=== PATIENT | male | born 1945 | race Caucasian/White ===

== ENCOUNTER 2019-04-13 09:37 | Outpatient (CLI) | payer MEDICARE, BC ==
--- NOTE | 2019-04-13 12:47 | MRI ---
MRI OF THE RIGHT ANKLE: DATE: 04/13/2019. PROVIDED CLINICAL HISTORY: Right heal palpable abnormality. FINDINGS: Evaluation for soft tissue mass is limited I the absence of IV contrast material. The anterior extensor, medial flexor, perineal, and Achilles tendons demonstrate an intact MR appeara nce. There is noncircumscribed fluid signal intensity seen within Kager fat. The medial and lateral ankle ligaments appear intact. There is greater than physiologic retrocalcane al bursal fluid. There is enlargement and signal heterogeneity involving the medial cortical plantar aponeurosis near its calcaneal attachment with associated signal alteration within the subcortical bone. Prominence of the vasculature involving the lateral branch of the plantar nerve. No evidence for den ervation change involving the regional musculature. The tarsal sinus appears normal. There is prese rvation of the normal fat signal intensity within the tarsal sinus. The tarsal tunnel appears normal . There is a circumscribed area of signal alteration within the subcutaneous adipose layer plantar to t he medial cord of the plantar aponeurosis/plantar calcaneus. This demonstrates T1 signal intensity i sointense to skeletal muscle and heterogeneous T2 signal intensity peripherally with a central focus of predominantly homogeneous T2 signal. This measures approximately 2.2 cm in greatest AP dimension x 1.4 x 2.1 in greatest craniocaudal dimensions. Regional marrow and muscular signal appear unremarkable. IMPRESSION: 1. Circumscribed mass-like area of signal alteration within the subcutaneous adipose layer at the pl luis aspect of the posterior calcaneus as described above. This process is incompletely characteriz ed in the absence of IV contrast material. This could reflect pseudobursa formation or fat necrosis. Other etiologies are not excluded. Postcontrast imaging is recommended. 2. Plantar fasciitis. 3. Edema within Kager fat and greater than physiologic retrocalcaneal bursal fluid. Correlate with concerns for Achilles peritendinitis and retrocalcaneal bursitis. POS: [facility]
== END 2019-04-13 09:38 | disposition home or self-care (01) ==
LOC: TBSIIMAG 09:37
PROVIDERS: ATTEND Orthopaedic Surgery
DX: R22.41 Localized swelling, mass and lump, right lower limb (principal); M72.2 Plantar fascial fibromatosis; R60.0 Localized edema; R93.7 Abnormal findings on diagnostic imaging of other parts of musculoskeletal system

== ENCOUNTER 2019-04-25 08:24 | Outpatient (CLI) | payer MEDICARE, BC ==
--- NOTE | 2019-04-25 10:42 | RAD ---
Radiograph right ankle 3 views: DATE: 04/25/2019 HISTORY: 74-year-old male with swelling and mass of right ankle FINDINGS: No destructive osseous lesion. Chronic appearing truncation of the medial malleolus. Ankle mortise is congruent. Rather than an oblique view, a plantar calcaneal view has been submitted. Boehler's angle is preserved. No heel spurs. Calcaneal trabecular markings are preserved. IMPRESSION: 1. No abnormal osseous mass. 2. Truncation of medial malleolus suggestive of previous medial malleolus fracture with resorption of bone fragment.
[2019-04-25] MEDS ORDERED: Gadobenate Dimeglumine 529 MG/1 ML (20ML VIAL) ONE (11:36)
--- NOTE | 2019-04-25 14:28 | MRI ---
MRI OF THE RIGHT HINDFOOT WITH AND WITHOUT CONTRAST: INDICATION: Evaluate soft tissue mass seen within the right hindfoot dated 04/13/2019. COMPARISON: Right heel radiograph dated 12/01/2018 and right ankle radiograph dated 04/25/2019. FINDINGS: Corresponding to the circumscribed intermediate to low, high T2 signal lesion within the plantar fat pad, just subjacent to the medial plantar fascial band attachment to the plantar calcaneus, is a mariya pherally enhancing 2.3 x 1.8 x 2.3 cm cystic lesion. There is abnormal increased T2 signal, involvin g the medial plantar fascial band and its attachment to the plantar calcaneus consistent with plantar fasciitis. There is mild Achilles tendinosis and mild edema within Kager's fat pad. The medial and lateral flexor tendons in addition to the extensor tendons are within normal limits. There are slig ht varicosities again seen along the medial aspect of the ankle, near the tarsal tunnel and along the medial aspect of the hindfoot that courses along the trajectory of the lateral branch of the plantar nerve. Intrinsic foot musculature appears within normal limits. The bone marrow signal intensity w ithin the remaining aspects of the hindfoot appear within normal limits. No osteochondral defect is evident. The visualized extrinsic and intrinsic ligaments of the ankle appear intact. IMPRESSION: 1. The T2 hyperintense mass demonstrates peripheral enhancement within the heel pad and is just subj acent to the medial plantar fascial band attachment to the medial plantar calcaneus. This lesion is suspicious for an adventitial bursa. Other differential considerations include a foreign body reacti on or a small abscess. Cystic malignancy is felt to be less likely. 2. Moderate plantar fasciitis. 3. Mild Achilles tendinosis. 4. Nonspecific mild to moderate edema within Kager's fat pad. POS: [facility]
== END 2019-04-25 08:25 | disposition home or self-care (01) ==
LOC: RAD 08:24
PROVIDERS: ATTEND Orthopaedic Surgery
DX: R22.41 Localized swelling, mass and lump, right lower limb (principal); M72.2 Plantar fascial fibromatosis; M76.61 Achilles tendinitis, right leg; R60.0 Localized edema
CPT/HCPCS: A9577